=== PATIENT | female | born 2000 | race Caucasian/White ===

== ENCOUNTER 2022-09-09 12:45 | Emergency (ER) | payer OTHER ==
[2022-09-09 13:01] VITALS: BP 113/69; PULSE 85; RESP 18; TEMP 98; BMI 23.7
[2022-09-09] MEDS ORDERED: ACETAMINOPHEN 500 MG TABLET (FP) PO ONE (14:21)
[2022-09-09] MEDS ORDERED: DEXAMETHASONE SOD PHOSPHATE 10 MG/1 ML VIAL IM ONE (14:21)
[2022-09-09] MEDS ORDERED: IBUPROFEN 600 MG TABLET (FP) PO ONE ×2 (14:21→14:23)
[2022-09-09] MEDS ORDERED: DEXAMETHASONE SOD PHOSPHATE 10 MG/1 ML VIAL ONE (14:23)
[2022-09-09] MEDS ORDERED: ACETAMINOPHEN 500 MG TABLET (FP) ONE (14:23)
== END 2022-09-09 15:26 | disposition home or self-care (01) ==
LOC: JERFT 12:45
PROC: 3E023GC Introduction of Other Therapeutic Substance into Muscle, Percutaneous Approach (ICD-10-PCS; principal; 2022-09-09)
DX: J02.9 Acute pharyngitis, unspecified (principal); Z20.822 Contact with and (suspected) exposure to COVID-19
CPT/HCPCS: 0241U-QW; 87651; 99284-25; J1100

== ENCOUNTER 2024-02-29 19:19 | Emergency (ER) | payer OTHER ==
[2024-02-29 19:23] VITALS: BP 113/72; PULSE 74; RESP 18; TEMP 98.4; BMI 22.8
[2024-02-29 21:09] LABS: PH,URINE 7.5 (5.0-8.0); URINE APPEARANCE CLEAR; URINE BILIRUBIN NEGATIVE (NEGATIVE); URINE COLOR YELLOW; URINE GLUCOSE (UA) NEGATIVE (NEGATIVE); URINE KETONE NEGATIVE (NEGATIVE); URINE LEUK ESTERASE NEGATIVE (NEGATIVE); URINE NITRITE NEGATIVE (NEGATIVE); URINE PROTEIN NEGATIVE (NEGATIVE); URINE UROBILINOGEN 0.2 mg/dL (0.2-1.0)
[2024-02-29 22:03] LABS: HIV INTERPRETATION NEGATIVE (NEGATIVE)
[2024-02-29 22:35] LABS: BASO % 0.9 % (0-2.0); EOS % 0.7 % (0-4.5); HEMATOCRIT 39.1 % (32.4-45.2); HEMOGLOBIN 12.8 GM/dL (10.7-15.3); LYMPH % 42.7 % (8-40); MCH 28.7 pg (25.7-33.7); MCHC 32.7 g/dl (32.0-36.0); MEAN CELL VOLUME 87.7 fl (80-96); MEAN PLT VOLUME 10.4 fl (7.5-11.1); NEUT % 46.7 % (42.8-82.8); PLATELET COUNT 243 10^3/uL (134-434); RBC 4.46 M/mm3 (3.60-5.2); RDW 14.3 % (11.6-15.6)
[2024-02-29 23:31] LABS: POTASSIUM 3.7 mmol/L (3.5-5.1)
[2024-02-29 23:33] LABS: ALBUMIN 4.6 g/dl (3.4-5.0); CALCIUM 9.9 mg/dL (8.5-10.1)
[2024-02-29 23:34] LABS: BLOOD UREA NITROGEN 11.8 mg/dL (7-18)
[2024-02-29 23:37] LABS: CREATININE 0.7 mg/dL (0.55-1.3)
[2024-02-29 23:38] LABS: BILIRUBIN,TOTAL 0.4 mg/dL (0.2-1); TOT PROT 8.1 g/dl (6.4-8.2)
== END 2024-03-01 00:10 | disposition home or self-care (01) ==
LOC: JERFT 19:19
DX: R30.0 Dysuria (principal); R35.0 Frequency of micturition; R50.9 Fever, unspecified
CPT/HCPCS: 36415; 80053; 81003; 84703; 85025; 86803; 87070; 87077; 87086; 87205; 87389; 87491; 87591; 87661; 99283-25